=== PATIENT | female | born 1935 | race Caucasian/White ===

== ENCOUNTER 2018-03-13 23:55 | Observation (INO) | payer OTHER, MEDICARE ==
[~2018-03-13] VITALS: Ht 171.4 cm; Wt 62.3 kg
[2018-03-14 00:44] LABS: HEMATOCRIT 40.2 % (36.0-46.0); HEMOGLOBIN 13.3 G/DL (11.9-15.5); MCH 30.5 PG (29.0-34.0); MCHC 33.1 G/DL (30.0-36.0); MCV 92.2 FL (83-99); PLATELET COUNT 293 K/uL (156-360); RBC DIS.WIDTH-CV 12.9 % (11.8-14.6); RBC DIS.WIDTH-SD 43.7 % (39-53); RED BLOOD COUNT 4.36 M/uL (3.80-5.20); WHITE BLOOD COUNT 7.8 K/uL (4.1-10.2)
[2018-03-14 00:58] LABS: CHLORIDE 108 mEq/L (99-109); POTASSIUM 4.2 mEq/L (3.7-5.4); SODIUM 140 mEq/L (136-147)
[2018-03-14 01:00] LABS: GLUCOSE 111 mg/dL (70-99); TOTAL PROTEIN 6.9 g/dL (6.4-8.3)
[2018-03-14 01:02] LABS: TOTAL BILIRUBIN 0.9 mg/dL (0.0-1.0)
[2018-03-14 01:03] LABS: ALKALINE PHOSPHATASE 105 IU/L (3-129)
[2018-03-14 01:04] LABS: CREATININE 0.8 mg/dL (0.6-1.3); GFR ESTIMATE (CALCULATED) > 59 mL/min/
[2018-03-14 01:05] LABS: UREA NITROGEN (BUN) 12 mg/dL (9-23)
[2018-03-14 01:06] LABS: AST (GOT) 19 IU/L (2-34)
[2018-03-14 01:07] LABS: ALT (GPT) 12 IU/L (3-49)
[2018-03-14 01:08] LABS: TROP-I INTERPRETATION NEGATIVE; TROPONIN-I < 0.01 ng/mL (0.0-0.30)
[2018-03-14] MEDS ORDERED: LISINOPRIL20 MG PO (04:33)
[2018-03-14] MEDS ORDERED: LEVOTHYROXINE88 MCG PO (04:33)
[2018-03-14 05:46] VITALS: BP 143/77
[2018-03-14 09:16] LABS: TROP-I INTERPRETATION NEGATIVE; TROPONIN-I < 0.01 ng/mL (0.0-0.30)
[2018-03-14 11:50] VITALS: BP 177/80
[2018-03-14 15:27] LABS: TROP-I INTERPRETATION NEGATIVE; TROPONIN-I < 0.01 ng/mL (0.0-0.30)
[2018-03-14 16:25] VITALS: BP 112/62
[2018-03-14 20:00] VITALS: BP 138/82
[2018-03-14 23:51] VITALS: BP 133/78
[2018-03-15 04:29] VITALS: BP 132/66
[2018-03-15 05:31] LABS: BASOPHIL COUNT 0.1 K/uL (0-0.1); EOSINOPHIL (%) 1.4 % (0-5); EOSINOPHIL COUNT 0.1 K/uL (0-0.3); HEMATOCRIT 38.7 % (36.0-46.0); HEMOGLOBIN 12.6 G/DL (11.9-15.5); IMMATURE GRANULOCYTE (%) 0.4 % (0.0-0.7); LYMPHOCYTE (%) 18.3 % (15-42); LYMPHOCYTE COUNT 0.9 K/uL (1.0-2.8); MCH 30.1 PG (29.0-34.0); MCHC 32.6 G/DL (30.0-36.0); MCV 92.6 FL (83-99); MONOCYTE (%) 11.7 % (3-12); MONOCYTE COUNT 0.6 K/uL (0-0.8); NEUTROPHIL (%) 67.2 % (45-76); NEUTROPHIL COUNT 3.4 K/uL (1.8-6.4); PLATELET COUNT 253 K/uL (156-360); RBC DIS.WIDTH-CV 12.7 % (11.8-14.6); RBC DIS.WIDTH-SD 43.6 % (39-53); RED BLOOD COUNT 4.18 M/uL (3.80-5.20)
[2018-03-15 05:52] LABS: CHLORIDE 102 MEQ/L (99-109); CREATININE 0.6 MG/DL (0.6-1.3); GFR ESTIMATE (CALCULATED) > 59 mL/min/; GLUCOSE 102 mg/dL (70-99); POTASSIUM 3.8 MEQ/L (3.7-5.4); SODIUM 138 MEQ/L (136-147); UREA NITROGEN (BUN) 13 mg/dL (9-23)
[2018-03-15 07:18] VITALS: BP 139/71
[2018-03-15 11:14] VITALS: BP 129/64
[2018-03-15] MEDS ORDERED: CEFTIN500 MG PO (13:18)
== END 2018-03-15 12:37 | disposition left against medical advice (07) ==
LOC: EME 23:55 → EDOF 03-14 04:33 → ENRESERV 03-14 04:37 → 4SOUTH 03-14 05:33
PROVIDERS: Hospitalist; Nurse Practitioner Adult Health; Physician Assistant
DX: J15.9 Unspecified bacterial pneumonia (principal); R91.8 Other nonspecific abnormal finding of lung field; F01.50 Vascular dementia, unspecified severity, without behavioral disturbance, psychotic disturbance, mood disturbance, and anxiety; F32.9 Major depressive disorder, single episode, unspecified; I10 Essential (primary) hypertension; Z87.891 Personal history of nicotine dependence; Z89.619 Acquired absence of unspecified leg above knee; E03.9 Hypothyroidism, unspecified
CPT/HCPCS: 71046; 71275; 80048; 80053; 83605; 84484; 85025; 85027; 85379; 87040; 93005; 94640; 94799; 99281; 99285; G0378; G8978 GP CH; G8979 GP CH; G8980 GP CH; G8987 GO CH; G8988 GO CH; G8989 GO CH; J0456; J0696; J1650